=== PATIENT | male | born 1975 | race Caucasian/White ===

== ENCOUNTER 2024-02-12 08:43 | Outpatient (CLI) | payer OTHER, SELFPAY | END 2024-02-12 08:44 | disposition home or self-care (01) | PROVIDERS: PCP Emergency Medicine; Visit Provider Emergency Medicine | DX: E78.2 Mixed hyperlipidemia (principal); Z13.1 Encounter for screening for diabetes mellitus | CPT/HCPCS: 80061; 82947 ==

== ENCOUNTER 2024-08-27 09:57 | Outpatient (CLI) | payer OTHER, SELFPAY | END 2024-08-27 09:58 | disposition home or self-care (01) | LOC: NFLDREF 08-29 20:44 | PROVIDERS: PCP Emergency Medicine; Referring Provider Emergency Medicine; Visit Provider Emergency Medicine | DX: E78.2 Mixed hyperlipidemia (principal); F41.9 Anxiety disorder, unspecified; R00.2 Palpitations | CPT/HCPCS: 80048; 80061 ==

== ENCOUNTER 2024-09-16 09:47 | Outpatient (CLI) | payer OTHER, SELFPAY | END 2024-09-16 09:48 | disposition home or self-care (01) | PROVIDERS: PCP Emergency Medicine; Visit Provider Emergency Medicine | DX: R10.11 Right upper quadrant pain (principal) | CPT/HCPCS: 80076; 83690 ==

== ENCOUNTER 2024-09-21 08:36 | Outpatient (CLI) | payer OTHER, SELFPAY ==
--- NOTE | 2024-09-21 09:29 | P.ANES_ITS ---
Anesthesia Charges Start Date/Time Anesthesia Start Date: 09/21/24 Anesthesia Start Time: 09:05 Stop Date/Time Anesthesia Stop Date: 09/21/24 Anesthesia Stop Time: 09:22 Coding CPT Codes CPT Codes: PAL LWR INTST SCR COLSC - [id number] ([id number]) QK - MARZIPAN MAKER 2-4 CNCRNT PAL PROC, QX - AGED OR DISABLED CARER SVC W/ MD MED DIRECTION, P2 - PATIENT W/MILD SYST DISEASE
--- NOTE | 2024-09-21 09:29 | W.ANESCHARGE ---
Anesthesia Charges Start Date/Time Anesthesia Start Date: 09/21/24 Anesthesia Start Time: 09:05 Stop Date/Time Anesthesia Stop Date: 09/21/24 Anesthesia Stop Time: 09:22 Coding CPT Codes CPT Codes: PAL LWR INTST SCR COLSC - [id number] ([id number]) QK - CHILD ADVOCATE 2-4 CNCRNT PAL PROC, QX - CREDIT COLLECTOR SVC W/ MD MED DIRECTION, P2 - PATIENT W/MILD SYST DISEASE
--- NOTE | 2024-09-21 12:00 | P.ANES_ITS ---
Anesthesia Charges Start Date/Time Anesthesia Start Date: 09/21/24 Anesthesia Start Time: 09:05 Stop Date/Time Anesthesia Stop Date: 09/21/24 Anesthesia Stop Time: 09:22 Coding CPT Codes CPT Codes: PAL LWR INTST SCR COLSC - [id number] ([id number]) P1 - NORMAL HEALTHY PATIENT, QK - CIVIL PREPAREDNESS OFFICER 2-4 CNCRNT ANES PROC, QX - CANTEEN ATTENDANT SVC W/ MED DIRECTION
--- NOTE | 2024-09-21 12:00 | W.ANESCHARGE ---
Anesthesia Charges Start Date/Time Anesthesia Start Date: 09/21/24 Anesthesia Start Time: 09:05 Stop Date/Time Anesthesia Stop Date: 09/21/24 Anesthesia Stop Time: 09:22 Coding CPT Codes CPT Codes: PAL LWR INTST SCR COLSC - [id number] ([id number]) P1 - NORMAL HEALTHY PATIENT, QK - DRIVER EDUCATION INSTRUCTOR 2-4 CNCRNT ANES PROC, QX - CHAPLAIN SVC W/ MED DIRECTION
== END 2024-09-21 08:37 | disposition home or self-care (01) ==
LOC: OP CLINIC 08:36
PROVIDERS: PCP Emergency Medicine; Visit Provider Internal Medicine
DX: Z12.11 Encounter for screening for malignant neoplasm of colon (principal)
CPT/HCPCS: 00812; 45378; J2704